=== PATIENT | male | born 1960 | race Caucasian/White ===

== ENCOUNTER 2018-08-10 01:04 | Inpatient (IN) | payer OTHER ==
[2018-08-10] VITALS (18 sets, daily range): BP systolic 92–132; BP diastolic 64–95
[~2018-08-10] VITALS: Ht 182.9 cm; Wt 117.0 kg
[~2018-08-10 01:04] MED LIST: HYDR-2966 PO; LISI20TA29 PO
[2018-08-10] MEDS ORDERED: HYDROmorphone HCL 2 MG/ML SDV ONE (11:28)
[2018-08-10] MEDS ORDERED: ONDANSETRON 4 MG/2 ML VIAL ONE (11:30)
[2018-08-10] MEDS ORDERED: ROPIVACAINE 0.2% 20 ML VIAL ONE (11:30)
[2018-08-10] MEDS ORDERED: DEXAMETHASONE SOD PHOS 10MG/ML ONE (11:30)
[2018-08-10] MEDS ORDERED: PROPOFOL EMUL(*) 10MG/ML 20 ML 20 ML ONE (11:30)
[2018-08-10] MEDS ORDERED: LIDOCAINE/SOD BICARB 8.4% SYR ID ONE (11:35)
[2018-08-10] MEDS ORDERED: NORMOSOL R SOLN(*) 1000 ML BAG 1,000 ML IV PRN ×2 (11:35→14:45)
[2018-08-10] MEDS ORDERED: TRANEXAMIC AC 1000 MG/10ML SDV 1,000 MG in DEXTROSE 5% 50 ML BAG 50 ML IV ONE (11:35)
[2018-08-10] MEDS ORDERED: CELECOXIB 200 MG CAP PO ONE (11:35)
[2018-08-10] MEDS ORDERED: ROPIVACAINE/EPI/CLONIDINE/KET 50 ML SYRINGE INJ ONE ×2 (11:35)
[2018-08-10] MEDS ORDERED: PREGABALIN 150 MG CAPSULE PO ONE (11:35)
[2018-08-10] MEDS ORDERED: MIDAZOLAM 2 MG/2 ML VIAL IVP PRN (11:35)
[2018-08-10] MEDS ORDERED: ceFAZolin(*) 2GM/D5W 50ML 50 ML IVPB ONE (11:35)
[2018-08-10] MEDS ORDERED: ACETAMINOPHEN 500 MG TAB PO ONE (11:35)
[2018-08-10] MEDS ORDERED: ROPIVACAINE 0.2% 400 MG/200ML 250 ML CONINFUS ONE (11:35)
[2018-08-10] MEDS ORDERED: FAMOTIDINE 20 MG TAB PO ONE (11:35)
[2018-08-10] MEDS ORDERED: METOPROLOL TART 5 MG/5 ML VIAL ONE (14:10)
[2018-08-10] MEDS ORDERED: fentaNYL CITR 100 MCG/2 ML AMP ONE ×2 (14:33→15:07)
[2018-08-10] MEDS ORDERED: ZOLPIDEM TARTRATE 5 MG TAB PO PRN (14:45)
[2018-08-10] MEDS ORDERED: BISACODYL 10 MG SUPP PR PRN (14:45)
[2018-08-10] MEDS ORDERED: MAGNESIUM HYDROXIDE* 30ML UDCP PO PRN (14:45)
[2018-08-10] MEDS ORDERED: ONDANSETRON 4 MG/2 ML VIAL IVP PRN (14:45)
[2018-08-10] MEDS ORDERED: FLUSH 10 ML SYR IVP PRN (14:45)
[2018-08-10] MEDS ORDERED: MORPHINE 4 MG/ML SDV IVP PRN (14:45)
[2018-08-10] MEDS ORDERED: PROMETHAZINE 25 MG/ML 1 ML AMP IVP PRN (14:45)
[2018-08-10] MEDS ORDERED: DIAZEPAM 5 MG TAB PO PRN (14:50)
--- NOTE | 2018-08-10 15:10 | RADIOLOGY IMAGING REPORT ---
FACILITY: [facility] PATIENT NAME: Narayan Delvalle : 1960 MR: [id number] V: [id number] EXAM DATE: ORDERING PHYSICIAN: CHAPARRO REY TECHNOLOGIST: Location: [facility] Patient: Narayan Delvalle : 1960 Visit/Account:[id number] Date of Sevice: 08/10/2018 Left knee bilateral knees Indication: Postoperative Comparison: None Findings: Two views left knee are submitted. Anatomic alignment status post left total knee arthroplasty. Com ponents are well seated and aligned appropriately. Expected soft tissue changes. Two views right knee demonstrate anatomic alignment status post right total knee arthroplasty. [place] nents are well seated and aligned appropriately. Expected soft tissue changes. IMPRESSION: 1. Expected osseous appearance status post bilateral total knee arthroplasties Report Dictated By: Nik Aguero MD at 08/10/2018 3:04 PM Report E-Signed By: Nik Aguero MD at 08/10/2018 3:06 PM WSN:[email or web address]
--- NOTE | 2018-08-10 15:11 | RADIOLOGY IMAGING REPORT ---
[place] [facility] [place]: Narayan Delvalle : 1960 MR: [id number] V: [id number] EXAM DATE: ORDERING PHYSICIAN: CHAPARRO REY TECHNOLOGIST: Location: [facility] Patient: Narayan Delvalle : 1960 Visit/Account:[id number] Date of Sevice: 08/10/2018 Left knee bilateral knees Indication: Postoperative Comparison: None Findings: Two views left knee are submitted. Anatomic alignment status post left total knee arthroplasty. Com ponents are well seated and aligned appropriately. Expected soft tissue changes. Two views right knee demonstrate anatomic alignment status post right total knee arthroplasty. [place] nents are well seated and aligned appropriately. Expected soft tissue changes. IMPRESSION: 1. Expected osseous appearance status post bilateral total knee arthroplasties Report Dictated By: Nik Aguero MD at 08/10/2018 3:04 PM Report E-Signed By: Nik Aguero MD at 08/10/2018 3:06 PM WSN:[email or web address]
--- NOTE | 2018-08-10 15:59 | Hospitalist Consultation ---
History of Present Illness Requesting Physician Dr. Cedeno Reason for Consult Medical Management Chief Complaint s/p bilateral knee replacement History of Present Illness He was admitted s/p bilateral knee replacement. It is reported the surgery went well and without complication. History Problems: (1) Hypertension Status: Chronic Home Meds Reported Medications Hydrochlorothiazide (HYDROCHLOROTHIAZIDE) 25 Mg Tablet, 1 TAB PO QDAY, TAB 08/03/18 Lisinopril (LISINOPRIL) 20 Mg Tablet, 20 MG PO QDAY, TAB 08/03/18 Allergies: Coded Allergies: No Known Drug Allergies (Unverified , 08/03/18) Patient History: Patient reports no known family medical history. Hx Smoking: No Smoking Status: Never Smoker Exposure to Second Hand Smoke?: No Caffeine Intake: Coffee Caffeine/Cups Per Day: 1-2 Hx Alcohol Use: Yes Alcohol Used: Beer, Liquor Hx Substance Use Disorder: No Social Drug Use: Never History of IV Drug Use: No Review of Systems All Systems Reviewed/Normal: Yes, Except as Noted Exam Vital Signs Vital Signs Date Time Temp Pulse Resp B/P (MAP) Pulse Ox O2 Delivery O2 Flow Rate FiO2 08/10/18 15:45 97.3 92 12 113/77 (89) 95 Nasal Cannula 2.0 General Appearance: Alert, Awake, No Acute Distress, Afebrile Neuro: No Gross deficits Cardiovascular: Regular Rate and Rhythm Respiratory: No Respiratory Distress, Clear to Auscultation Psych: Alert & Oriented X3, Appropriate Mood & Affect Assessment and Plan Problems: (1) Status post bilateral knee replacements Status: Acute Assessment & Plan: He will be placed on Aspirin for DVT prophylaxis. He has no history of DVT or PE. (2) Hypertension Status: Chronic Assessment & Plan: He is on chronic treatment with Lisinopril and Hydrochlorothiazide. These medications were started with hold parameters. Venous Thromboembolism Antithrombotics Is Pt On Any Antithrombotics?: No Problem Qualifiers (1) Hypertension: Hypertension type: essential hypertension Qualified Codes: I10 - Essential (primary) hypertension DARBY CANALES IT PROGRAM ENGAGEMENT DIRECTOR Aug 10, 2018 15:59
[2018-08-10] MEDS ORDERED: amlodipine (16:29)
[2018-08-10] MEDS: oxyCODONE HCL 5 MG CAP PO PRN ×2 (18:20→22:43)
[2018-08-10] MEDS: ceFAZolin(*) 2GM/D5W 50ML 50 ML IVPB SCH (18:20)
[2018-08-10] MEDS: ACETAMINOPHEN 500 MG TAB PO SCH (18:20)
[2018-08-11 02:55] VITALS: BP 110/70
[2018-08-11] MEDS: ACETAMINOPHEN 500 MG TAB PO SCH ×3 (02:58→17:50)
[2018-08-11] MEDS: oxyCODONE HCL 5 MG CAP PO PRN ×5 (02:59→22:39)
[2018-08-11] MEDS: ceFAZolin(*) 2GM/D5W 50ML 50 ML IVPB SCH ×2 (02:59→10:59)
[2018-08-11] MEDS ORDERED: NS(*) 0.9% 250 ML BAG 250 ML ONE (03:54)
--- NOTE | 2018-08-11 06:25 | OPERATIVE REPORT 1 ---
EVENT DATE: August 10, 2018 SURGEON: Chad Cedeno MD ANESTHESIOLOGIST: Placido Hooker MD ANESTHESIA: Left adductor canal block followed by general. BIOMASS PLANT MANAGER: Ander Patel PA-C PREOPERATIVE DIAGNOSIS Left knee degenerative joint disease with limited range of motion to flexion of only 90 degrees. POSTOPERATIVE DIAGNOSIS Left knee degenerative joint disease with limited range of motion to flexion of only 90 degrees. PROCEDURE PERFORMED Left total knee arthroplasty. IMPLANTS USED MicroPort medial-pivot CS system with a 5 femur, 6 tibia, 12 mm CS insert, 8 x 32 symmetric patella, femur cut 6 degrees valgus, 10 mm. We also utilized two packages of DonJoy cobalt blue cement and ZipLine wound closure system and 50 mL of our standard Toradol/ropivacaine cocktail. SPECIMENS None. COMPLICATIONS None. BLOOD LOSS Less than 200 mL. DESCRIPTION OF PROCEDURE Patient was brought to the OR after receiving preoperative antibiotic, and Dr. Hooker performed left adductor canal block followed by general anesthesia. Left thigh tourniquet was placed. Left lower extremity was prepped and draped in the usual sterile fashion and exsanguinated. Tourniquet was inflated to 250 mmHg. A midline incision was made, followed by a medial parapatellar arthrotomy. Dissection was carried out subperiosteally along the medial tibial plateau to the level of the semimembranosus insertion. Fat pad was excised, patella released and everted, and knee brought out by hyperflexion. ACL and PCL were released subperiosteally by Bovie. Remaining articular cartilage was removed from the distal femoral condyles by sagittal saw. Femoral canal broached with a step-cut drill. Intramedullary guide positioned. Distal cutting block set up at 10 mm, 6 degrees valgus. Retractors were placed, distal cut made. A 3- degree external rotation guide was then positioned, referencing off anterior flange, epicondyles, posterior condyles. This was size to a #5, and we drilled the holes. A 4-in-1 cutting guide as positioned, followed by Z-retractors to protect the soft tissue, and we made our four cuts. Tibia was brought anteriorly on the femur with appropriate retractors. Extramedullary tibial guide was then positioned, referencing for slope rotation. Depth of cut was 10 mm off the least involved lateral tibial plateau. This block was pinned into place, retractors placed, cut made, femur sized to a #6. Stump of the ACL and PCL and medial and lateral meniscus removed by Bovie. Posterior osteophytes removed by curved osteotome, and the capsule elevated with the Mae elevator. We placed our trial #6 tibial base plate, referencing from the previous rotation, starting with the 10 then moving up to 12 mm insert. We then placed our 12 mm femur. We were able to achieve full extension, flexion of approximately 130 degrees, stability to varus and valgus stress, solid end point and anterior drawer. We then placed the knee in full extension. Patella was sized to 22 mm. The 8 mm cutting guide was then placed, and this was then cut and this accepted a 32 x 8 symmetric peg hole cut, which was positioned inferiorly and medially and peg holes drilled. This accepted our trial. The knee was brought up into flexion. Peg holes were drilled for the femur. These were placed. Trochlear chip was cut, and then the chip was placed. Again, we had the aforementioned range of motion and stability, and patella tracked well. Patella, femur, and tibial insert removed. Retractors were placed. Tibial tower was placed, and we cut, reamed and punched this for the keel. Instrumentation was removed. Bone plug was placed in the distal femur. We copiously irrigated by pulsed lavage while we mixed two packages of DonJoy cobalt blue cement. Sclerosis was drilled down to patella. We copiously irrigated by pulsed lavage and injected 10 mL of our cocktail into the posterior capsule and placed the knee in appropriate position starting with the tibia. This was cemented into place, followed by our 12 mm CS insert, then a #5 femur. Excess cement was removed. The knee was brought out to full extension with axial compression while we cemented the patella. After approximately 13 minutes, the cement had cured. Again, we had the aforementioned range of motion and stability. While we were waiting for the cement to cure, we had further injected and injected our remaining cocktail in the distal quad mechanism. The knee was placed at 30 degrees. Arthrotomy was closed with #2 Vicryl, followed by 2-0 Vicryl for subcutaneous tissues and ZipLine wound closure system for skin at 45 degrees. Compressive dressing was applied. Patient was extubated, taken to recovery in stable condition. Hospitalist team is consulted for medical management and anticoagulation. LASHAY
[2018-08-11 07:23] VITALS: BP 132/80
--- NOTE | 2018-08-11 07:53 | OPERATIVE REPORT 1 ---
EVENT DATE: August 10, 2018 SURGEON: Chad Cedeno MD ANESTHESIOLOGIST: Placido Hooker MD ANESTHESIA: Right adductor canal block followed by general. SHOE POLISHER: Shaji Patel PA-C PREOPERATIVE DIAGNOSIS Right knee degenerative joint disease with limited flexion of only approximately 90 degrees. POSTOPERATIVE DIAGNOSIS Right knee degenerative joint disease with limited flexion of only approximately 90 degrees. PROCEDURE PERFORMED Right total knee arthroplasty. IMPLANTS USED MicroPort medial pivot CS system with a 6 femur, 6 tibia, 12 mm CS insert, 8 x 32 symmetric patella, femur cut 6 degrees valgus, 10 mm. We also utilized two packages of DonJoy [place] Blue cement and ZipLine Wound Closure System and 50 cc of our Ropivacaine/Toradol cocktail. SPECIMENS None. COMPLICATIONS None. ESTIMATED BLOOD LESS Less than 200 cc. DESCRIPTION OF PROCEDURE The patient was brought to the operating room after receiving appropriate preoperative antibiotics. Dr. Hooker performed a right adductor canal block followed by general anesthesia. Right thigh tourniquet was placed. The right lower extremity prepped and draped in the usual sterile fashion. Midline incision was followed by a medial parapatellar arthrotomy. We dissected subperiosteally in the medial tibial plateau to the level of the semimembranosus insertion. Fat pad was excised. Patella released and everted. Knee was brought into hyperflexion. Significant osteophytes in the notch and high grade chondromalacia in the medial compartment. The ACL and PCL were released subperiosteally by Bovie and the remaining articular cartilage was removed from the distal femoral condyles by sagittal saw. Step cut drill was utilized to broach the femoral canal. We placed an intramedullary guide, setting the distal cutting block up at 10 mm, 6 degrees valgus and care taken to protect the soft tissues and we made our cut. 3-degree external rotation guide was positioned, referencing off the anterior flange of the femur, epicondyles, posterior condyles, and femur sized to a #6. 3-degree external rotation hole was drilled. We placed our cutting guide. Z retractors to protect the soft tissue and made our four cuts. We then brought the tibia anterior and the femur with appropriate retractors. Intramedullary tibial guide was in position. We referenced for slope rotation, depth was cut 10 mm off the least involved lateral tibial plateau. We then pinned our block into place with care to protect the soft tissues and made our tibial cut and this was sized to a #6. The stump of the ACL and PCL menisci were removed by Bovie. Osteophytes were removed by curved osteotome posteriorly and posterior capsule elevated with the Mae elevator. We placed our #6 tibial baseplate, referencing from the previous rotation, pinned this into place. Starting with a 12 mm insert, we then placed our #6 femur. We had full extension, stability to varus/valgus stress, and flexion to 130 and satisfactory end point and anterior drawer at 90 degrees. The knee was brought in full extension. The patella was measured measured to be 23 mm in depth and using an 8 mm guide, we cut this down and placed our peg hole guide inferiorly and medially, drilled in peg holes and this accepted an 8 x 32 symmetric patella. We brought the knee up into flexion. Peg holes drilled and these were placed. Bone was cut for the chip and this was placed. Again, we had the aforementioned range of motion, stability and patella tracked well. I removed the femur, patella, trial tibial insert, placed appropriate retractors. Set up our keel tower which was cut, reamed, and punched. We then removed this instrumentation and placed a bone plug in the distal femur. While two packages of DonJoy [place] blue cement were mixed, we irrigated significantly with the pulse lavage and injected 10 cc of our cocktail into the posterior capsule and placed the knee in appropriate position for our cementation. Starting with the tibia, this was cemented into place, followed by our 12 mm insert and #6 femur. We removed excess cement. We brought the knee into full extension with axial compression while we cemented the patella. After 11 1/2 minutes the cement had cured, and again we had the aforementioned range of motion and stability. While we were waiting for the cement to cure, we then injected the remaining cocktail into the distal quad mechanism and copiously irrigated. We then closed our arthrotomy with #2 Vicryl followed by 2-0 for subcutaneous tissues and ZipLine Wound Closure System for skin. Compressive dressing was applied. Patient was extubated and taken to recovery in stable condition. Hospitalist team to be consulted for medical management and anticoagulation. LASHAY
[2018-08-11] MEDS: ASPIRIN 325 MG TAB PO SCH (08:19)
[2018-08-11] MEDS: HYDROCHLOROTHIAZIDE 25 MG TAB PO SCH (08:20)
[2018-08-11] MEDS: LISINOPRIL 20 MG TAB PO SCH (08:20)
--- NOTE | 2018-08-11 08:24 | Hospitalist Progress Note ---
Subjective Progress Notes Subjective He has no complaints this morning. He had no acute events overnight. Patient Complains of: Cardiovascular: No: Chest Pain Respiratory: No: Shortness of Breath Physical Exam Vital Signs Date Time Temp Pulse Resp B/P (MAP) Pulse Ox O2 Delivery O2 Flow Rate FiO2 08/11/18 07:23 98.5 90 16 132/80 (97) 94 Nasal Cannula 08/11/18 02:55 1.0 Intake and Output 08/11/18 06:58 Intake Total 2310 ml Output Total 650 ml Balance 1660 ml Intake Oral 360 ml IV Total 1950 ml Output Urine Total 650 ml General Appearance: Alert, Awake, No Acute Distress, Afebrile Neuro: No Gross deficits Cardiovascular: Regular Rate and Rhythm Respiratory: No Respiratory Distress, Clear to Auscultation Psych: Alert & Oriented X3, Appropriate Mood & Affect Assessment and Plan Problems: (1) Status post bilateral knee replacements Status: Acute Assessment & Plan: He will be placed on Aspirin for DVT prophylaxis. He has no history of DVT or PE. (2) Hypertension Status: Chronic Assessment & Plan: He is on chronic treatment with Lisinopril and Hydrochlorothiazide. These medications were started with hold parameters. Exam Sepsis Risk: No Definite Risk Problem Qualifiers (1) Hypertension: Hypertension type: essential hypertension Qualified Codes: I10 - Essential (primary) hypertension DARBY CANALES Aug 11, 2018 08:24
[2018-08-11] MEDS: KETOROLAC TROM 10MG TAB PO PRN (10:59)
[2018-08-11 11:45] VITALS: BP 149/73
[2018-08-11 13:21] VITALS: Ht 182.9 cm; Wt 117.0 kg
[2018-08-11] MEDS: traMADol 50 MG TAB PO PRN ×2 (14:05→20:15)
[2018-08-11 15:24] VITALS: BP 142/81
[2018-08-11 19:26] VITALS: BP 158/84
[2018-08-11 22:19] VITALS: BP 142/85
[2018-08-12] MEDS: ACETAMINOPHEN 500 MG TAB PO SCH ×2 (02:20→09:02)
[2018-08-12] MEDS: traMADol 50 MG TAB PO PRN ×2 (02:21→10:39)
[2018-08-12 02:23] VITALS: BP 123/81
[2018-08-12] MEDS: oxyCODONE HCL 5 MG CAP PO PRN ×2 (07:31→11:28)
[2018-08-12] MEDS ORDERED: ASPI-757 PO (07:54)
[2018-08-12 07:58] VITALS: BP 130/73
[2018-08-12] MEDS: HYDROCHLOROTHIAZIDE 25 MG TAB PO SCH (09:00)
[2018-08-12] MEDS: LISINOPRIL 20 MG TAB PO SCH (09:00)
[2018-08-12] MEDS: ASPIRIN 325 MG TAB PO SCH (09:02)
--- NOTE | 2018-08-12 12:54 | Hospitalist Progress Note ---
Subjective Progress Notes Subjective He has no complaints this morning. He had no acute events overnight. He wants to go home today. Patient Complains of: Cardiovascular: No: Chest Pain Respiratory: No: Shortness of Breath Physical Exam Vital Signs Date Time Temp Pulse Resp B/P (MAP) Pulse Ox O2 Delivery O2 Flow Rate FiO2 08/12/18 09:03 90 Room Air 08/12/18 07:58 98.8 89 16 130/73 (92) 08/12/18 02:23 1.0 Intake and Output 08/12/18 06:58 Intake Total 1150 ml Output Total 2240 ml Balance -1090 ml Intake Oral 1100 ml IV Total 50 ml Output Urine Total 2240 ml # Voids 1 General Appearance: Alert, Awake, No Acute Distress, Afebrile Neuro: No Gross deficits Cardiovascular: Regular Rate and Rhythm Respiratory: No Respiratory Distress, Clear to Auscultation Psych: Alert & Oriented X3, Appropriate Mood & Affect Assessment and Plan Problems: (1) Status post bilateral knee replacements Status: Acute Assessment & Plan: He will be placed on Aspirin for DVT prophylaxis. He has no history of DVT or PE. (2) Hypertension Status: Chronic Assessment & Plan: He is on chronic treatment with Lisinopril and Hydrochlorothiazide. These medications were started with hold parameters. Exam Sepsis Risk: No Definite Risk Problem Qualifiers (1) Hypertension: Hypertension type: essential hypertension Qualified Codes: I10 - Essential (primary) hypertension DARBY CANALESP Aug 12, 2018 12:54
--- NOTE | 2018-08-12 13:29 | DISCHARGE SUMMARY ---
DATE OF ADMISSION: August 10, 2018 DATE OF DISCHARGE: August 12, 2018 HISTORY A 57-year-old male admitted to Day Surgery and underwent left total knee arthroplasty followed by right total knee arthroplasty. He was admitted to the floor. Hospitalist team was consulted for adjuvant anticoagulation, PT for rehab. Progressed in satisfactory manner. On date of discharge, bilateral lower extremities are neurovascularly intact. Wounds are clean, dry, and intact. After clearance by PT and hospitalist team, he will be discharged to home. PLAN 1. Outpatient physical therapy. 2. Medical transfer to his primary care physician per the hospitalist team. DISCHARGE MEDICATIONS 1. Tramadol. 2. Toradol. 3. OxyIR prescribed for pain. FOLLOWUP We are going to see him back in a week in our [place] [facility]. PREOPERATIVE DIAGNOSIS Right and left degenerative joint disease. PROCEDURE Left and right total knee arthroplasties. LASHAY
[2018-08-12] MEDS: KETOROLAC TROM 10MG TAB PO PRN (14:28)
== END 2018-08-12 14:36 | disposition home or self-care (01) | DRG 462 ==
LOC: OR 01:04 → MED 15:45 → OBSVTOIN 15:45
PROVIDERS: ADMIT Orthopaedic Surgery; ATTEND Orthopaedic Surgery
PROC: 0SRC0J9 Replacement of Right Knee Joint with Synthetic Substitute, Cemented, Open Approach (ICD-10-PCS; 2018-08-10)
PROC: 0SRD0J9 Replacement of Left Knee Joint with Synthetic Substitute, Cemented, Open Approach (ICD-10-PCS; principal; 2018-08-10 11:20)
DX: M17.0 Bilateral primary osteoarthritis of knee (principal); I10 Essential (primary) hypertension
CPT/HCPCS: 36415; 85610; 86850; 86900; 86901; 97162; C1713; C1776; J0690; J1100; J1170; J2250; J2405; J2704; J2795; J3010; J3490; J7060